=== PATIENT | male | born 1995 | race Caucasian/White ===

== ENCOUNTER 2021-12-12 08:15 | Emergency (ER) | payer SELFPAY ==
[2021-12-12 08:20] VITALS: BP 171/100; PULSE 83; RESP 17; TEMP 36.8; O2SAT 97; BMI 47.6
--- NOTE | 2021-12-12 08:22 | XR_ITS ---
FINAL REPORT CLINICAL HISTORY: fell down strairs yesterday FINDINGS: AP and lateral views of the sacrum and coccyx were obtained. There is no prior exam for comparison. There is no acute fracture or other acute osseous abnormality. The SI joints are symmetric bilaterally. The sacrococcygeal articulation appears within normal limits. No acute soft tissue abnormality is present. IMPRESSION: No acute abnormality of the sacrum or coccyx. Reviewed, Interpreted and Dictated by Anne-Marie Loaiza MD Transcribed by Kacey Montoya Authenticated by Anne-Marie Loaiza MD on 12/12/2021 09:18:33 AM [facility]
--- NOTE | 2021-12-12 08:23 | HMH.EDFALL ---
ED Disposition Clinical Impression: Coccyx pain, Elevated blood pressure, situational Disposition: Home, Self-Care Condition on Discharge: Good Instructions: DI for Coccyx Fracture Additional Instructions: follow up PCP 7-10 days for elevated blood pressure OTC tylenol/motrin/ice as needed Prescriptions: Hydrocodone/Acetaminophen [Hydrocodone-Acetamin 5-325 mg] 1 tab PO TID PRN 2 Days #8 tab PRN Reason: Moderate To Severe Pain Prescription Printed Referrals: Provider,Referral, MD [Primary Care Provider] - - Critical Care Critical Care Time: No Attestation: On , the high probability of a clinically significant, sudden or life threatening deterioration of the following system(s) required my full and direct attention, intervention and personal management. The time I documented below is in addition to time spent performing reported procedures but includes the following listed in this critical care notation. Medical Decision Making - Medical Records Medical records reviewed: Yes: I reviewed the patient's medical records. - Dann Inquiry Pt receiving controlled substance: Yes Dann was queried for this patient: Yes Risks and benefits of using a controlled substance: were discussed with pt by me Vital Signs: 12/12/21 08:20 12/12/21 09:23 Temperature 98.2 F 98 F Temperature Source Oral Pulse Rate 80 Pulse Rate [Radial] 83 Respiratory Rate 17 18 Blood Pressure 165/90 H Blood Pressure [Right Arm] 171/100 H Blood Pressure Mean [Right Arm] 123 02 Sat by Pulse Oximetry 97 Fall HPI - General Stated Complaint: AO fall 12/11 back pain Time Seen by Provider: 12/12/21 08:23 - History of Present Illness HPI Narrative: fall on steps at home yest, struck tailbone, today with diff walking Onset (ago): day(s) Fall from: standing Place fall occurred: home Loss of consciousness: none Prolonged down time: no Symptoms prior to fall: none Context: tripped/slipped Location of injury: back Severity: moderate Associated symptoms (after fall): denies - Related Data Previous Rx's Medication Instructions Recorded Hydrocodone/Acetaminophen 1 tab PO TID PRN 2 Days #8 tab 12/12/21 [Hydrocodone-Acetamin 5-325 mg] Allergies Allergy/AdvReac Type Severity Reaction Status Date / Time tuberculin,PPD,multi-puncture Allergy Verified 12/12/21 08:26 [facility] History - Hepatitis A Screen Attestation statement:: This patient has been screened for Hepatitis A risk factors. ROS Obtained: Yes All systems reviewed & no additional complaints Physical Exam - General General appearance: alert, in no apparent distress - Respiratory Respiratory exam: Absent: respiratory distress, wheezes, stridor - Cardiovascular Cardiovascular exam: Present: normal rhythm. Absent: bradycardia, tachycardia - Extremities Exam Extremities exam: Present: normal inspection, full ROM. Absent: tenderness - Back Exam Back exam: Present: normal inspection, full ROM, tenderness, other (ttp coccyx area, no viz abn, no n/t/incont/saddle anes). Absent: CVA tenderness (R), CVA tenderness (L), paraspinal tenderness, vertebral tenderness - Neurological Exam Neurological exam: Present: alert, oriented X3, CN II-XII intact - Skin Skin exam: Present: warm, intact, normal color
[2021-12-12 09:23] VITALS: BP 165/90; PULSE 80; RESP 18; TEMP 36.6; O2SAT 100
== END 2021-12-12 09:24 | disposition home or self-care (01) ==
LOC: ER 09:19
PROVIDERS: Emergency Provider Emergency Medicine
DX: M53.3 Sacrococcygeal disorders, not elsewhere classified (principal); R03.0 Elevated blood-pressure reading, without diagnosis of hypertension
CPT/HCPCS: 72220; 99283

== ENCOUNTER 2022-01-08 13:20 | Emergency (ER) | payer MEDICAID, SELFPAY ==
[2022-01-08 14:10] VITALS: BP 143/83; PULSE 89; RESP 19; TEMP 36.6; O2SAT 97; BMI 44.3
--- NOTE | 2022-01-08 14:39 | HMH.EDUTC ---
[facility] Disposition Clinical Impression: Conjunctivitis Qualifiers: Conjunctivitis type: unspecified Laterality: bilateral Qualified Code(s): H10.9 - Unspecified conjunctivitis Disposition: Home, Self-Care Condition on Discharge: Good Instructions: Conjunctivitis, DI for Conjunctivitis, Azithromycin Additional Instructions: Use drops as directed Follow up with Eye Doctor if no improvement or any worsening of symptoms Return if needed Straight to ER if any life threatening symptoms Prescriptions: Azithromycin [AzaSite 1% Ophth Soln] 1 drp OP DIRECTED #2.5 ml Transmission Status: Pending to [facility] Referrals: Provider,Referral, [Primary Care Provider] - As needed Time of Disposition: 14:51 Medical Decision Making - Dann Inquiry Pt receiving controlled substance: No Dann was queried for this patient: No Vital Signs: 01/08/22 14:10 Temperature 97.9 F Temperature Source Oral Pulse Rate [Right Brachial] 89 Respiratory Rate 19 Blood Pressure [Right Arm] 143/83 H Blood Pressure Mean [Right Arm] 103 Blood Pressure Source [Right Arm] Automatic Cuff Blood Pressure Position [Right Arm] Sitting 02 Sat by Pulse Oximetry 97 Oxygen Delivery Method Room Air [facility] [place] HPI - General Stated complaint: eye irritation/redness Time Seen by Provider: 01/08/22 14:39 Mode of Arrival: Ambulatory Source of Information: Patient Limitations: No Limitations Description of Symptoms (Recalled from Triage Doc. by RN): PATIENT C/O REDNESS, SWELLING, DRAINAGE, AND DISCOMFORT TO EYES X 5 DAYS HEENT Symptoms (Recalled from RN notes): Yes Resp Symptoms (Recalled from RN notes): No Skin Symptoms (Recalled from RN notes): No MS Symptoms (Recalled from RN notes): No Functional Status (Recalled from RN notes): WNL - History of Present Illness Provider Complaint: Patient states that for the last 5 days he has been having mild swelling, redness and drainage in his left eye and now it has moved over to his right eye States that today they was looking more red and still having drainage so he came in - Related Data Previous Rx's Medication Instructions Recorded Azithromycin [AzaSite 1% Ophth 1 drp OP DIRECTED #2.5 ml 01/08/22 Soln] Allergies Allergy/AdvReac Type Severity Reaction Status Date / Time tuberculin,PPD,multi-puncture Allergy Verified 12/12/21 08:26 - Worker's Comp Is this a Worker's Comp case?: No [facility] History - Hepatitis A Screen Attestation statement:: This patient has been screened for Hepatitis A risk factors. I have reviewed the patient's past medical history: Yes Medical History: Reports:: Diabetes Mellitus Type 2 - Social History Smoking Status: Current every day smoker Tobacco Type: cigarettes # Packs/Day (cigarettes): 1 Alcohol Intake: never Occupational Status: other ROS Obtained: Yes All systems reviewed & no additional complaints, Yes Systems reviewed as appropriate & no additional complaints - Constitutional Constitutional: Reports system reviewed and no additional complaints, except as docu, Denies body ache, Denies chills, Denies fever(s) - Eyes Eyes: Reports system reviewed and no additional complaints, except as docu, Reports eye discharge, Reports irritation, Denies loss of vision Physical Exam - General General appearance: alert, in no apparent distress - Eye Eye exam: Present: conjunctival redness, discharge, other (bilateral conjunctival redness with matting particles eyelashes) - Respiratory Respiratory exam: Present: normal lung sounds bilaterally. Absent: respiratory distress - Cardiovascular Cardiovascular exam: Present: regular rate, normal rhythm. Absent: JVD - Abdominal Exam Abdominal exam: Present: soft, normal bowel sounds. Absent: distention, tenderness, guarding - Neurological Exam Neurological exam: Present: alert, oriented X3
[2022-01-08 14:52] VITALS: BP 143/83; PULSE 89; RESP 19; TEMP 36.6; O2SAT 97
== END 2022-01-08 14:57 | disposition home or self-care (01) ==
PROVIDERS: Emergency Provider Nurse Practitioner
DX: H10.9 Unspecified conjunctivitis (principal); E11.9 Type 2 diabetes mellitus without complications; F17.210 Nicotine dependence, cigarettes, uncomplicated
CPT/HCPCS: 99213; G0463

== ENCOUNTER → 2022-03-05 16:53 | Outpatient (CLI) | payer MEDICAID, SELFPAY | PROVIDERS: PCP Nurse Practitioner Family; Visit Provider Nurse Practitioner Family | DX: G47.30 Sleep apnea, unspecified (principal); R06.83 Snoring | CPT/HCPCS: 95806 ==

== ENCOUNTER 2022-04-13 12:20 | Emergency (ER) | payer MEDICAID, SELFPAY ==
[2022-04-13 12:58] VITALS: BP 136/91; PULSE 95; RESP 18; TEMP 36.8; O2SAT 98; BMI 46.8
--- NOTE | 2022-04-13 13:04 | EXP.UTC ---
Discharge Plan Disposition Patient Disposition: Home, Self-Care Condition: Good Prescriptions Prescriptions: New benzonatate [benzonatate] 100 mg capsule 100 mg PO TIDP PRN (Reason: Cough) Qty: 30 0RF albuterol sulfate [Ventolin HFA] 90 mcg/actuation HFA aerosol inhaler 2 puff inhalation Q4-6H PRN (Reason: Shortness Of Breath Or Wheezing) Qty: 1 0RF ondansetron 4 mg Tablet,Disintegrating 4 mg PO Q8H PRN (Reason: Nausea) Qty: 20 0RF No Action lisinopril 5 mg tablet 5 mg PO DAILY Qty: 30 2RF escitalopram oxalate [Lexapro] 10 mg tablet 10 mg PO DAILY Qty: 30 2RF hydroxyzine pamoate [Vistaril] 25 mg capsule 25 mg PO TID PRN (Reason: itching) Qty: 60 0RF Referrals Follow up/Referrals: Felicitas Ralph PA [Primary Care Provider] - See instructions Activity Restrictions/Add. Instructions Additional Instructions/Restrictions: Drink plenty of fluids. Take tylenol or ibuprofen for pain or fever. Take the medications as directed. Follow up with your regular doctor. GO TO THE ER FOR ANY WORSENING SYMPTOMS Quarantine until you know the results of your covid-19 test. Notify your school or workplace of your results and follow their instructions regarding return to work/school. Clinical Impressions Clinical Impression: Acute viral syndrome, Asthma Stand Alone Forms Stand Alone Forms: Work/School Release Discharge ED Provider: Cheng Mercado [facility] General Stated complaint: Covid test, covid exposure, BA, SOA Mode of Arrival: Ambulatory Source of Information: Patient Limitations: No Limitations Time Seen by Provider: 04/13/22 13:04 HEENT Symptoms (Recalled from RN notes): No Resp Symptoms (Recalled from RN notes): Yes Skin Symptoms (Recalled from RN notes): No MS Symptoms (Recalled from RN notes): No Functional Status (Recalled from RN notes): n.a History of Present Illness Provider Complaint: pt comes in for covid test. pt was exposed 2 days ago and now has body aches, cough, shortness of breath Related Data Previous Rx's Medication Instructions Recorded escitalopram oxalate 10 mg tablet 10 mg PO DAILY #30 tabs 02/16/22 (Lexapro) hydroxyzine pamoate 25 mg capsule 25 mg PO TID PRN itching #60 caps 02/16/22 (Vistaril) lisinopril 5 mg tablet 5 mg PO DAILY #30 tabs 02/16/22 albuterol sulfate 90 mcg/actuation 2 puff inhalation Q4-6H PRN 04/13/22 aerosol inhaler (Ventolin HFA) Shortness Of Breath Or Wheezing #1 g benzonatate 100 mg capsule 100 mg PO TIDP PRN Cough #30 caps 04/13/22 ondansetron 4 mg disintegrating 4 mg PO Q8H PRN Nausea #20 tabs 04/13/22 tablet Allergies Allergy/AdvReac Type Severity Reaction Status Date / Time tuberculin,PPD,multi-puncture Allergy Verified 04/13/22 13:02 Worker's Comp Is this a Worker's Comp case?: No PFSH [facility] Social History Smoking Status: Current every day smoker tobacco type: cigarettes packs per day: 1 alcohol intake: never substance use type: denies use current occupational status: other Travel in the last 8 weeks: None household members: significant other housing: house ROS Obtained: Yes All systems reviewed & no additional complaints except as documented Constitutional Constitutional: Reports system reviewed and no additional complaints, except as documented, Denies chills and Denies fever(s) Eyes Eyes: Denies eye discharge ENT Ears, Nose, Mouth, and Throat: Denies dysphagia, Denies sore throat and Denies throat swelling Cardiovascular Cardiovascular: Denies chest pain and Denies dyspnea Respiratory Respiratory: Denies chest congestion, Denies cough and Denies dyspnea Gastrointestinal Gastrointestingal: Denies abdominal pain, constipation, diarrhea, dysphagia, nausea or vomiting Musculoskeletal Musculoskeletal: Denies arthralgias Integumentary/Breasts Skin/Breast: Denies rash Neurologic Neurologic: Denies paresthesias Allergic/I
[2022-04-13 13:42] VITALS: BP 136/91; PULSE 95; RESP 18; TEMP 36.8
== END 2022-04-13 13:47 | disposition home or self-care (01) ==
PROVIDERS: Emergency Provider Nurse Practitioner Family; PCP Physician Assistant
DX: B34.9 Viral infection, unspecified (principal); J45.909 Unspecified asthma, uncomplicated
CPT/HCPCS: 99212; C9803; G0463; U0003; U0005

== ENCOUNTER → 2022-06-19 11:03 | Outpatient (CLI) | payer MEDICAID, SELFPAY ==
[2022-06-19 15:23] LABS: Basophils # 0.1 K/mm3 (0-0.2); Basophils % 0.9 % (0.1-2.0); Eosinophils # 0.2 K/mm3 (0.0-0.4); Eosinophils % 2.6 % (0.1-12.0); Hematocrit 53.7 % (42.0-52.0); Hemoglobin 17.5 g/dL (14.1-18.0); Mean Corpuscular HGB Conc 32.6 g/dL (31.8-35.4); Mean Corpuscular Volume 98.1 fl (80-94); Mean Platelet Volume 10.4 fl (7.4-10.4); Monocytes # 0.7 K/mm3 (0.1-1.0); Monocytes % 8.2 % (1.7-9.3); Neutrophils % 66.3 % (37.0-80.0); Platelet Count 278 K/mm3 (142-424); Red Blood Count 5.47 M/mm3 (4.60-6.20); Red Cell Distribution Width 12.2 % (11.5-17.5); White Blood Count 9.1 K/mm3 (4.8-10.8)
[2022-06-19 16:34] LABS: Hemoglobin A1C 5.2 % (4.0-6.0)
[2022-06-19 16:35] LABS: Alanine Aminotransferase 42 U/L (12-78); Albumin Level 4.6 g/dl (3.5-5.0); Albumin/Globulin Ratio 1.7 (1.1-1.8); Alkaline Phosphatase 82 U/L (38-126); Anion Gap 19.2 mEq/L (5-15); Aspartate Amino Transferase 34 U/L (17-59); Bilirubin,Total 0.9 mg/dl (0.2-1.3); Blood Urea Nitrogen 14 mg/dl (9-20); Calcium 9.5 mg/dl (8.4-10.2); Carbon Dioxide 27 mmol/L (22.0-30.0); Chloride 96 mmol/L (98-107); Chol/HDL Ratio 5.1 (1-3.5); Cholesterol 142 mg/dl (140-200); Estimated Glomerular Filt Rate 90 ml/min (>60); GFR (African American) 109 ML/MIN (>60); Globulin 2.7 g/dL (1.3-3.2); Glucose 70 mg/dl (74-100); HDL Cholesterol 28 mg/dl (40-60); Potassium 4.2 mmoL/L (3.5-5.1); Sodium 138 mmol/L (136-145); Total Protein,Serum 7.3 g/dl (6.3-8.2); Triglycerides 165 mg/dl (30-150); VLDL Cholesterol 33 mg/dL (0-40)
[2022-06-19 16:46] LABS: Direct LDL Cholesterol 92.26 mg/dL (100-129)
[2022-06-19 16:53] LABS: 25-OH Vitamin D, Total 27.2 ng/mL (30-100)
[2022-06-19 17:06] LABS: Thyroid Stimulating Hormone 1.82 uIU/mL (0.465-4.68)
== END ==
PROVIDERS: PCP Physician Assistant; Visit Provider Physician Assistant
DX: R56.9 Unspecified convulsions (principal); E55.9 Vitamin D deficiency, unspecified; Z79.899 Other long term (current) drug therapy
CPT/HCPCS: 80053; 80061; 82306; 83036; 84443; 85025

== ENCOUNTER 2023-12-12 10:13 | Emergency (ER) | payer SELFPAY ==
[2023-12-12] VITALS (7 sets, daily range): BP systolic 108–153; BP diastolic 64–96; PULSE 49–77; RESP 18–20; TEMP 36.6–36.7; O2SAT 96–100; BMI 38.5
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
[2023-12-12] MEDS: FAMOTIDINE 20MG/2ML VIAL 20 MG IV (10:35)
[2023-12-12] MEDS: ONDANSETRON 4MG/2ML VIAL 4 MG IV (10:35)
[2023-12-12 10:36] LABS: Basophils # 0.1 K/mm3 (0-0.2); Eosinophils # 0.3 K/mm3 (0.0-0.4); Eosinophils % 3.6 % (0.1-12.0); Hematocrit 47.4 % (42.0-52.0); Hemoglobin 15.8 g/dL (14.1-18.0); Lymphocytes # 1.9 K/mm3 (0.7-4.5); Lymphocytes % 23.8 % (10-50); Mean Corpuscular HGB Conc 33.4 g/dL (31.8-35.4); Mean Corpuscular Hemoglobin 32.5 pg (27.0-31.2); Mean Corpuscular Volume 97.4 fl (80-94); Mean Platelet Volume 9.1 fl (7.4-10.4); Monocytes # 0.6 K/mm3 (0.1-1.0); Monocytes % 7.6 % (1.7-9.3); Neutrophils # 5.2 K/mm3 (1.8-7.8); Neutrophils % 64.1 % (37.0-80.0); Platelet Count 232 K/mm3 (142-424); Red Blood Count 4.86 M/mm3 (4.60-6.20); Red Cell Distribution Width 13.1 % (11.5-17.5); White Blood Count 8.1 K/mm3 (4.8-10.8)
[2023-12-12] MEDS: BELLADONNA ALKALOIDS 60 ML ML PO (10:36)
--- NOTE | 2023-12-12 10:42 | CT_ITS ---
FINAL REPORT TECHNIQUE: Pre-and postcontrast images of the abdomen and pelvis were performed by computed tomography. Extensive 3-D reconstruction images were performed. A CTA was performed. This study was performed with techniques to keep radiation doses as low as reasonably achievable (ALARA). Individualized dose reduction techniques using automated exposure control or adjustment of mA and/or kV according to the patient''s size were employed. CLINICAL HISTORY: hematemesis, moderate epigastric abd pain FINDINGS: ABDOMEN AND PELVIS: The lung bases are clear. Precontrast images demonstrate no evidence of nephrolithiasis. No adrenal masses are identified. There is moderate fatty infiltration of the liver. Spleen is heterogeneous likely due to red/white pulp differentiation. Remaining solid abdominal organs are without acute abnormality. Urinary bladder is incompletely distended. Appendix not identified. CTA: The abdominal aorta is proper caliber. The SMA, celiac axis, and SUSHMA are patent. There is no significant stenosis or calcification. The renal arteries are patent bilaterally. IMPRESSION: No evidence of renal vascular hypertension or significant renal artery stenosis. No acute process. Reviewed, Interpreted and Dictated by Anatoliy Victoria MD Transcribed by Oksana Floyd Authenticated and [facility]
[2023-12-12 10:46] LABS: Alanine Aminotransferase 30 U/L (12-78); Albumin Level 3.9 g/dl (3.5-5.0); Albumin/Globulin Ratio 1.4 (1.1-1.8); Alkaline Phosphatase 59 U/L (38-126); Anion Gap 10.7 mEq/L (5-15); Aspartate Amino Transferase 28 U/L (17-59); Bilirubin,Total 0.9 mg/dl (0.2-1.3); Blood Urea Nitrogen 15 mg/dl (9-20); Carbon Dioxide 27 mmol/L (22.0-30.0); Chloride 106 mmol/L (98-107); Creatinine Clearance Estimated 192 mL/min (50-200); Estimated Glomerular Filt Rate 80 ml/min (>60); GFR (African American) 96 ML/MIN (>60); Globulin 2.7 g/dL (1.3-3.2); Glucose 99 mg/dl (74-100); Lipase 95 U/L (23-300); Potassium 3.7 mmoL/L (3.5-5.1); Sodium 140 mmol/L (136-145); Total Protein,Serum 6.6 g/dl (6.3-8.2)
--- NOTE | 2023-12-12 10:58 | PC.NURSE ---
Dr. Augustine at [facility] for pt eval
--- NOTE | 2023-12-12 11:00 | PC.NURSE ---
PT TO CT
--- NOTE | 2023-12-12 11:36 | PC.NURSE ---
Pt returned from CT
[2023-12-12] MEDS: IOPAMIDOL-370 (76%);100ML BOTTLE 100 ML IV (11:50)
[2023-12-12] MEDS: SODIUM CHLORIDE 0.9% 50ML BAG 40 ML IV (11:51)
[2023-12-12] MEDS: SODIUM CHLORIDE 0.9% 10ML FLUSH SYRINGE 10 ML IV (11:51)
--- NOTE | 2023-12-12 14:05 | PC.NURSE ---
Rounded on pt in room and asked for a glass of water. Doctor said it was ok and pt was given some water
== END 2023-12-12 14:51 | disposition home or self-care (01) ==
PROVIDERS: Emergency Provider Emergency Medicine
DX: R11.2 Nausea with vomiting, unspecified (principal); F17.210 Nicotine dependence, cigarettes, uncomplicated
CPT/HCPCS: 74174; 80053; 83690; 85025; 96374; 96375; 99284; J2405; Q9967